=== PATIENT | male | born 1950 | race Caucasian/White ===

== ENCOUNTER 2017-02-05 08:36 | Inpatient (IN) | payer MEDICAID ==
[~2017-02-05] VITALS: Ht 165.1 cm; Wt 74.5 kg
[2017-02-05] VITALS (8 sets, daily range): BP systolic 112–129; BP diastolic 71–81; PULSE 59–77; RESP 18–19; Ht 165.1 cm; Wt 74.5 kg
[2017-02-05] MEDS ORDERED: ASPIRIN 81 MG TAB PO STA (09:05)
[2017-02-05] MEDS ORDERED: NITROGLYCERIN 2% 1 GM OINT PKT TD STA (09:05)
[2017-02-05] MEDS: NITROGLYCERIN (SL) 0.4 MG TAB SL PRN ×3 (09:16→09:31)
[2017-02-05 09:32] LABS: BASOPHILS % 0.5 % (0.0-2.0); EOSINOPHILS % 0.5 % (0.0-7.0); HEMATOCRIT 41.5 % (42.0-52.0); HEMOGLOBIN 14.9 g/dl (14.0-18.0); LYMPHOCYTES # 0.9 10^3/ul (0.8-2.9); LYMPHOCYTES % 25.3 % (15.0-51.0); MEAN CORPUSCULAR HEMOGLOBIN 32.4 pg (29.0-33.0); MEAN CORPUSCULAR HGB CONC 35.9 g/dl (32.0-37.0); MEAN CORPUSCULAR VOLUME 90.2 fl (82.0-101.0); MEAN PLATELET VOLUME 8.7 fl (7.4-10.4); MONOCYTE # 0.4 10^3/ul (0.3-0.9); MONOCYTES % 9.9 % (0.0-11.0); NEUTROPHIL # 2.3 10^3/ul (1.6-7.5); NEUTROPHILS % 63.5 % (39.0-77.0); PLATELET COUNT 175 10^3/UL (140-415); RED CELL DISTRIBUTION WIDTH 12.5 % (11.5-14.5); WHITE BLOOD COUNT 3.6 10^3/ul (4.8-10.8)
--- NOTE | 2017-02-05 09:40 | RADRPT ---
PROCEDURE: Chest Radiograph. CLINICAL INDICATION: Chest pain TECHNIQUE: Single frontal chest radiograph. COMPARISON: None available FINDINGS: The cardiomediastinal silhouette is within normal limits. No infiltrate or effusion is seen. Th e bones are intact. IMPRESSION: 1. Unremarkable chest radiograph. RPTAT: AA .Stoney Champagne MD, MD Date Time Electronically viewed and signed by .Stoney Champagne MD, on 02/05/2017 09:39 .B/
[2017-02-05 09:49] LABS: INR 0.94; PROTIME 12.6 Sec (12.2-14.2)
[2017-02-05 09:50] LABS: PARTIAL THROMBOPLASTIN TIME 28.1 Sec (25.0-35.0)
[2017-02-05 09:51] LABS: ANION GAP 19 (8-16); BLOOD UREA NITROGEN 7 mg/dl (7-20); CALCIUM 9.4 mg/dl (8.4-10.2); CARBON DIOXIDE 23 mmol/L (21-31); CHLORIDE 103 mmol/L (97-110); CREATININE 0.84 mg/dl (0.61-1.24); GLUCOSE 116 mg/dl (70-220); POTASSIUM 4.1 mmol/L (3.5-5.1); SODIUM 141 mmol/L (135-144)
[2017-02-05 10:05] LABS: TROPONIN-I < 0.012 ng/ml (0.00-0.12)
[2017-02-05] MEDS ORDERED: ONDANSETRON 4 MG INJ IV PRN (10:30)
[2017-02-05] MEDS ORDERED: ACETAMINOPHEN 325 MG TAB PO PRN (10:30)
--- NOTE | 2017-02-05 11:27 | ERA ---
ER Documentation Chief Complaint Date/Time DATE: 02/05/17 TIME: 11:25 Chief Complaint anxiety and left arm pain x last night HPI Patient is a 66-year-old male with no medical problems who presents with chest pain. He also feels pain in his left arm and rating into his left neck. This pain started 2 days ago. The pain comes and goes but was worse today. He says "I felt like I was going to last night". Upon review of old medical records this is the patient's first visit to the emergency department. He does not currently have a primary doctor. He has had no treatment as of yet. ROS All systems reviewed and are negative except as per history of present illness. Medications Home Meds No Active Prescriptions or Reported Meds Allergies Allergies: Coded Allergies: No Known Allergy (Unverified , 02/05/17) PMhx/Soc Medical and Surgical Hx: pt denies Medical Hx, pt denies Surgical Hx Hx Alcohol Use: Yes Hx Substance Use: No Hx Tobacco Use: No Smoking Status: Never smoker FmHx Family History: No coronary disease Physical Exam Vitals Vital Signs Date Time Temp Pulse Resp B/P Pulse Ox O2 Delivery O2 Flow Rate FiO2 02/05/17 09:30 75 18 119/70 97 02/05/17 08:39 98.7 86 18 156/90 98 Physical Exam Const: No acute distress Head: Atraumatic Eyes: Normal Conjunctiva ENT: Normal External Ears, Nose and Mouth. Neck: Full range of motion..~ No meningismus. Resp: Clear to auscultation bilaterally Cardio: Regular rate and rhythm, no murmurs Abd: Soft, non tender, non distended. Normal bowel sounds Skin: No petechiae or rashes Back: No midline or flank tenderness Ext: No cyanosis, or edema Neur: Awake and alert Psych: Normal Mood and Affect Result Diagram: 02/05/1790402/05/17904 Results 24 hrs Laboratory Tests Test 02/05/17 09:05 White Blood Count 3.610^3/ul Red Blood Count 4.6010^6/ul Hemoglobin 14.9g/dl Hematocrit 41.5% Mean Corpuscular Volume 90.2fl Mean Corpuscular Hemoglobin 32.4pg Mean Corpuscular Hemoglobin Concent 35.9g/dl Red Cell Distribution Width 12.5% Platelet Count 41542^3/UL Mean Platelet Volume 8.7fl Neutrophils % 63.5% Lymphocytes % 25.3% Monocytes % 9.9% Eosinophils % 0.5% Basophils % 0.5% Nucleated Red Blood Cells % 0.0/100WBC Neutrophils # 2.310^3/ul Lymphocytes # 0.910^3/ul Monocytes # 0.410^3/ul Eosinophils # 0.010^3/ul Basophils # 0.010^3/ul Nucleated Red Blood Cells # 0.010^3/ul Prothrombin Time 12.6Sec Prothrombin Time Ratio 1.0 INR International Normalized Ratio 0.94 Activated Partial Thromboplast Time 28.1Sec Sodium Level 141mmol/L Potassium Level 4.1mmol/L Chloride Level 103mmol/L Carbon Dioxide Level 23mmol/L Anion Gap 19 Blood Urea Nitrogen 7mg/dl Creatinine 0.84mg/dl Glucose Level 116mg/dl Calcium Level 9.4mg/dl Troponin I < 0.012ng/ml Current Medications Medications (Trade) Dose Ordered Sig/Sissy Route PRN Reason Start Time Stop Time Status Last Admin Dose Admin Aspirin (Aspirin) 162 mg ONCE STAT PO 02/05/17 09:05 02/05/17 09:06 DC 02/05/17 09:15 Nitroglycerin (Nitroglycerin 2% Oint) 1 inch ONCE STAT TD 02/05/17 09:05 02/05/17 09:06 DC 02/05/17 09:19 Nitroglycerin (Nitroglycerin (Sl Tab) 0.4 Mg) 1 tab Q5M UP TO 3 DOSES PRN SL CHEST PAIN 02/05/17 09:30 02/05/17 09:31 Ondansetron HCl (Zofran Inj) 4 mg ER BRIDGE PRN IV NAUSEA AND/OR VOMITING 02/05/17 10:30 02/06/17 10:29 Acetaminophen (Tylenol Tab) 650 mg ER BRIDGE PRN PO MILD PAIN/FEVER 02/05/17 10:30 02/06/17 10:29 Procedures/MDM EKG read by me: Rate/Rhythm: Regular rate and rhythm at a rate of 80 Intervals: Normal Impression: No evidence of ischemia or arrhythmia Chest x-ray negative per radiology. Patient is a 66-year-old male presents with chest pain. I am concerned about the chest pain radiating into his left arm and neck. The patient has possible acute coronary syndrome. I doubt pneumonia, pneumothorax, pulmonary embolism, or aortic dissection at this time. I spoke with Dr. Grier from the panel team for admission as the patient has self-pay insurance and has never been here before. The patient was given aspirin nitroglycerin empirically. He will be admitted to a telemetry bed. Departure Diagnosis: Primary Impression: Chest pain Qualified Code: R07.9 - Chest pain, unspecified type Condition: GERRY Champagne MD Feb 05, 2017 11:27
--- NOTE | 2017-02-05 15:29 | HP ---
Date/Time of Note Date/Time of Note DATE: 02/05/17 TIME: 15:25 Assessment/Plan VTE Prophylaxis VTE Prophylaxis Intervention: LMWH Lines/Catheters IV C[facility]from [facility] Saline Lock Assessment/Plan Chief Complaint/Hosp Course 66 yo male with atypical chest pain syndrome Atypical CP syndrome: - Unlikely cardiac pain given nonanginal and negative troponin, though no clear alternative diagnosis - Will monitor x 24 hours in house - Serial troponins - Aspirin 81 daily - Check lipids, A1C Dispo tomorrow PPx with LMWH Problems: HPI/ROS Admit Date/Time Admit Date/Time Feb 05, 2017 at 10:16 Hx of Present Illness 66 yo male without pmh presenting with CP syndrome Patient in [facility] until yesterday. Patient felt well during the day. Awoken from sleep with palpitations, CP, SOB and pain radiating down his L arm. Symptoms persisted for hours. Finally in AM decided to seek care in ED. Denies h/o exertional angina. 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 Currently feels well. Symtpoms still mildly present but mostly resolved PMH/Family/Social Past Medical History Medical History: no pertinent history Past Surgical History hernia repair Family History Significant Family History: no pertinent family hx Social History Alcohol Use: occasionally Smoking Status: Never smoker Drug Use: none Exam/Review of Systems Vital Signs Vitals Vital Signs Date Time Temp Pulse Resp B/P Pulse Ox O2 Delivery O2 Flow Rate FiO2 02/05/17 12:50 98.5 60 18 117/71 95 Room Air Exam Exam Appears very well, comfortable, NAD AOx3 No chest well tenderness. No pain to full AROM of LUE Flat neck veins RRR, no m/r/g Clear b/l No edema Soft belly nt nd Labs Result Diagram: 02/05/1790402/05/17 09 AYLEEN RICHARDS MD Feb 05, 2017 15:29
[2017-02-05 15:48] LABS: CREATINE KINASE 105 IU/L (23-200)
[2017-02-05 16:09] LABS: TROPONIN-I < 0.012 ng/ml (0.00-0.12)
[2017-02-05 22:26] LABS: CREATINE KINASE 92 IU/L (23-200)
[2017-02-05 22:40] LABS: CK-MB 0.64 ng/ml (0.0-2.4); TROPONIN-I < 0.012 ng/ml (0.00-0.12)
[2017-02-06] VITALS (7 sets, daily range): BP systolic 100–122; BP diastolic 61–75; PULSE 54–64; RESP 18–19
[2017-02-06] MEDS ORDERED: ASPIRIN (EC) 81 MG TAB PO SCH (09:00)
[2017-02-06] MEDS ORDERED: ENOXAPARIN 40 MG/0.4 ML SYG SC SCH (09:00)
--- NOTE | 2017-02-06 13:45 | PDOCDIS ---
Discharge Instructions DIAGNOSIS Discharge Diagnosis Chest pain CONDITION Patient Condition: Good HOME CARE INSTRUCTIONS: Diet Instructions: RegularSpecial Diet: Cardiac Diet ACTIVITY: Activity Restrictions: No Restrictions FOLLOW UP/APPOINTMENTS Follow-up Plan Make an appointment with a primary care doctor for general medical care Return to the emergency room if you feel any concerning symptoms AYLEEN RICHARDS MD Feb 06, 2017 13:45
--- NOTE | 2017-02-06 13:46 | DS ---
Date/Time of Note Date/Time of Note DATE: 02/06/17 TIME: 13:45 Discharge Summary Admission/Discharge Info Admit Date/Time Feb 05, 2017 at 10:16 Discharge Date/Time Discharge Diagnosis Chest pain Patient Condition: Good Hx of Present Illness 66 yo male without pmh presenting with CP syndrome Patient in [facility] until yesterday. Patient felt well during the day. Awoken from sleep with palpitations, CP, SOB and pain radiating down his L arm. Symptoms persisted for hours. Finally in AM decided to seek care in ED. Denies h/o exertional angina. 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 Currently feels well. Symtpoms still mildly present but mostly resolved Hospital Course 66 yo male with atypical chest pain syndrome Troponins negative. EKG without ischemic changes. Symptoms resolved. Patient discharged with follow up in primary alf Meds No Active Prescriptions or Reported Meds Primary Care Provider Care Physician No Primary Time spent on discharge: > 30 minutes Pending Labs Laboratory Tests Test 02/05/17 15:16 02/05/17 21:42 Creatine Kinase 105IU/L (23-200) 92IU/L (23-200) Creatine Kinase Index 0.6 0.7 Creatinine Kinase MB (Mass) 0.60ng/ml (0.0-2.4) 0.64ng/ml (0.0-2.4) Troponin I < 0.012ng/ml (0.00-0.12) < 0.012ng/ml (0.00-0.12) AYLEEN RICHARDS MD Feb 06, 2017 13:46
--- NOTE | 2017-02-06 22:23 | RADRPT ---
Echocardiogram Report Patient Name: FRANCISCO HAHN Gender: Male Date: 1950 Study Date: 06-Feb-2017 Emergency Room Tech: Evaristo [facility] Location: [id number] Ref. Physician: AYLEEN RICHARDS Quality: Adequate Procedures: Transthoracic echocardiogram with complete 2D, M-Mode, and doppler examination. Indications: Chest Pain. 2D/M Mode Doppler Measurement Value Normal Ranges Measurement Value Normal Ranges LVIDd 2D 4.6 3.5 - 5.6 cm AV Peak German 1.4 m/sec LVIDs 2D 3.1 2.1 - 4.1 cm AV Peak PG 8.0 mmHg FS 2D 32.3 % LVOT Peak German 1.0 m/sec LVPWd 2D 1.3 0.6 - 1.1 cm LVOT Peak PG 4.0 mmHg IVSd 2D 1.3 0.6 - 1.1 cm MV E Peak German 0.6 m/sec IVS/LVPW 2D 1.0 MV A Peak German 0.7 m/sec AoR Diam 2D 2.9 2.0 - 3.7 cm MV E/A 0.8 LA/Ao 2D 1 0 - 1 MV Decel Time 278 msec EDV 2D 98.0 cm3 MV E/A 0.8 ESV 2D 30.4 cm3 TR Peak German 2.3 m/sec LA Dimen 2D 3.8 2.3 - 4.0 cm TR Peak PG 21.0 mmHg RVSP 24.0 mmHg Findings Left Ventricle: Normal left ventricular systolic function. Normal left ventricular cavity size. Mild concentric left ventricular hypertrophy. Ejection fraction is visually estimated at 60 %. Tissue Doppler/Mitral Doppler indices are consistent with impaired relaxation (Stage I diastolic dysfunction). Right Ventricle: Normal right ventricular size. Normal right ventricular systolic function. Left Atrium: The left atrium is normal in size. Right Atrium: The right atrium is normal in size. Mitral Valve: Mild mitral leaflet calcification. Mild mitral annular calcification. Trace mitral regurgitation. Aortic Valve: Normal appearance of the aortic valve. No significant aortic stenosis or insufficiency. Tricuspid Valve: Normal appearance of the tricuspid valve. Estimated peak PA systolic pressure 24 mmHg. There is trace tricuspid regurgitation. Pulmonic Valve: Pulmonic valve not well visualized. There is trace pulmonic regurgitation. Pericardium: Normal pericardium with no significant pericardial effusion. Aorta: Normal aortic root. IVC: Normal size and normal respiratory collapse consistent with normal right atrial pressure. Conclusions Normal left ventricular systolic function. Normal left ventricular cavity size. Mild concentric left ventricular hypertrophy. Ejection fraction is visually estimated at 60 %. Tissue Doppler/Mitral Doppler indices are consistent with impaired relaxation (Stage I diastolic dysfunction). Normal right ventricular size. Normal right ventricular systolic function. The left atrium is normal in size. The right atrium is normal in size. No significant valvular stenosis or regurgitation seen. Normal pericardium with no significant pericardial effusion. Electronically Signed By: Hong Avendano 06-Feb-2017 22:22:53 -0700 Patient Name: FRANCISCO HAHN Study Date: 06-Feb-2017 [id number]
== END 2017-02-06 14:18 | disposition home or self-care (01) | DRG 313 ==
LOC: E/R 08:36 → MS3 10:16 → MS4 18:18
PROVIDERS: ADMIT Internal Medicine; ATTEND Internal Medicine
DX: R07.9 Chest pain, unspecified (principal)
CPT/HCPCS: 36415; 71010; 80048; 82550; 82553; 84484; 85025; 85610; 85730; 93005; 93306; J1650

== ENCOUNTER 2017-09-09 12:05 | Emergency (ER) | END 2017-09-09 16:51 | disposition home or self-care (01) ==